=== PATIENT | male | born 1955 | race Caucasian/White ===

== ENCOUNTER 2021-01-04 16:39 | Observation (INO) | payer MEDICARE, BC, SELFPAY ==
[2021-01-04] VITALS (10 sets, daily range): BP systolic 142–181; BP diastolic 87–113; PULSE 102–116; RESP 17–28; TEMP 36.5–37.2; O2SAT 94–99; BMI 23.6; BMI 23.1
[2021-01-04 17:34] LABS: Add Manual Diff / Slide Review NO; Basophils Absolute Auto 0 /uL (0-100); Eosinophils Absolute Auto 0 /uL (0-450); Hematocrit 39.3 % (41-53); Hemoglobin 13.8 g/dL (13.5-17.5); Lymphocytes Absolute Auto 1000 /uL (1100-4500); Lymphocytes Percent Auto 8.3 % (25-40); Mean Corpuscular HGB Conc 35.2 % (30-36); Mean Corpuscular Hemoglobin 34.5 PG (26-34); Mean Corpuscular Volume 97.9 fL (80-100); Monocytes Absolute Auto 800 /uL (0-900); Monocytes Percent Auto 6.1 % (3-14); Neutrophils Absolute Auto 10600 /uL (1500-7000); Neutrophils Percent Auto 85.6 % (50-75); Platelet Count 221 X10^3/uL (150-400); Red Blood Cell Count 4.01 X10^6/uL (4.5-5.9); Red Cell Distribution Width 13.5 % (11.6-14.8); White Blood Cell Count 12.4 X10^3/uL (4.5-11.0)
[2021-01-04] MEDS: PANTOPRAZOLE 40 MG VIAL 80 MG IV (17:35)
[2021-01-04] MEDS: SODIUM CHLORIDE 0.9% 1,000 ML 125 ML IV (17:35)
[2021-01-04] MEDS: ONDANSETRON 4 MG/2 ML INJ IV (17:35)
[2021-01-04 17:42] LABS: INR 1.1 (0.9-1.3); Prothrombin Time 12.6 SECONDS (10.1-12.7)
--- NOTE | 2021-01-04 17:42 | PC.NURSE ---
coffee ground emesis.
[2021-01-04 17:44] LABS: PTT Partial Thromboplastin Tim 32 SECONDS (26.4-36.2)
[2021-01-04 17:54] LABS: Ethanol (ETOH) < 10 mg/dL
[2021-01-04 17:55] LABS: Alanine Aminotransferase 36 IU/L (<50); Albumin 4.9 g/dL (3.5-5.0); Albumin Globulin Ratio 1.4 (1.0-2.8); Alkaline Phosphatase 82 U/L (38-126); Aspartate Aminotransferase 58 IU/L (17-59); BUN Creatinine Ratio 50.5 (6-22); Bilirubin Total 2.3 mg/dL (0.2-1.3); Blood Urea Nitrogen 46 mg/dL (9-20); Calcium 10.2 mg/dL (8.4-10.2); Carbon Dioxide 27 mmol/L (22-32); Chloride 98 mmol/L (98-107); Creatine Kinase 599 U/L (55-170); Estimated Glomerular Filt Rate > 60.0 mL/min (>60); Globulin 3.4 g/dL (1.7-4.1); Glucose 184 mg/dL (80-110); HEMOLYSIS < 15 (0-50); Lipase 26 U/L (23-300); Potassium 3.4 mmol/L (3.4-5.1); Sodium 140 mmol/L (137-145); Total Protein 8.3 g/dL (6.3-8.2)
[2021-01-04 17:56] LABS: Lactate (Lactic Acid) 3.1 mmol/L (0.7-2.1)
[2021-01-04 18:06] LABS: Troponin I 0.017 ng/mL (0.01-0.034)
[2021-01-04 18:10] LABS: CKMB % Relative Index 0.6 % (1.5-5.0); Creatine Kinase MB 3.52 ng/mL (<2.37)
--- NOTE | 2021-01-04 18:13 | ED.GIBLEED ---
HPI - GI Bleed General Chief complaint: GI Bleed Stated complaint: NVD chills fever, black stools+ vomit Time Seen by Provider: 01/04/21 17:25 Source: patient Mode of arrival: Wheelchair Limitations: no limitations History of Present Illness HPI Narrative: Patient is a 65-year-old male with history of hypertension chronic back pain presenting with black tarry stools and coffee-ground emesis which started last evening. He has had about 10 episodes of coffee-ground emesis sometime just bright red but not copious amounts of bright red and his stools have all been black tarry stool. He denies any chronic NSAID use he is not on any anticoagulation. He states a small amount of scotch every night it is the only amount he can afford. He is quite shaky and says it is because he has not eaten. He denies any abdominal pain. He has not taken any Pepto-Bismol. He denies any chest pain or palpitations no shortness of breath. He is visiting from [place] he is here for work. Related Data Home Medications Medication Instructions Recorded Confirmed gabapentin 300 mg capsule 300 mg PO TID 01/04/21 01/04/21 lisinopril 20 mg tablet 20 mg PO DAILY 01/04/21 01/04/21 oxybutynin chloride 5 mg 5 mg PO BEDTIME 01/04/21 01/04/21 tablet,extended release 24 hr Allergies Allergy/AdvReac Type Severity Reaction Status Date / Time Penicillins Allergy Severe Anaphylaxis Verified 01/04/21 17:03 Review of Systems Review of Systems Narrative: GENERAL: Denies chills, fatigue, malaise, fever, sweats, travel HEENT: Denies sinus pain, ear pain, sore throat, difficulty swallowing, neck pain RESPIRATORY: Denies dyspnea, cough, wheezing, hemoptysis, sputum. CARDIOVASCULAR: Denies chest pain, palpitations, orthopnea, edema GASTROINTESTINAL: See HPI : Denies dysuria, frequency, incontinence, hematuria, urinary retention, flank pain. MUSCULOSKELETAL: Denies weakness, joint pain, or bony pain SKIN: No rash, no erythema, no pruritus NEUROLOGIC: Denies weakness, dizziness, headache, numbness, change in speech, confusion PSYCHIATRIC: No concerning psychosocial issues. 12 point review of systems is negative except for those stated above and HPI Patient History Medical History (Updated 01/04/21 @ 21:28 by TRINH Leon-POLLO) Chronic back pain Essential (primary) hypertension Urinary incontinence Urinary retention with incomplete bladder emptying Surgical History (Updated 01/04/21 @ 21:28 by FEDERICA Leon) History of hand surgery History of lumbar spinal fusion History of vasectomy Family History Mother Hypertension Stroke Macular degeneration Father Dementia Social History household members: spouse Smoking Status: Former smoker alcohol intake: current Smoking Status: Former smoker alcohol intake frequency: 0-2 drinks per day Alcohol type: hard liquor Substance Use Type: marijuana Exam Initial Vital Signs Initial Vital Signs: Vital Signs Temperature 97.7 F 01/04/21 16:57 Pulse Rate 116 H 01/04/21 16:57 Respiratory Rate 22 01/04/21 16:57 Blood Pressure 166/113 H 01/04/21 16:57 Pulse Oximetry 97 01/04/21 16:57 GENERAL: Alert pleasant 65-year-old male he does have obvious tremors HEENT: Head atraumatic,EOMI, pupils reactive, face symmetric, moist mucous membranes CARDIOVASCULAR: Regular rate and rhythm without murmurs, rubs or gallops. RESPIRATORY: Breath sounds equal bilaterally, no wheezes rales or rhonchi. ABDOMEN: Soft, nontender. Normoactive bowel sounds all 4 quadrants. No guarding or rebound. RECTAL: Hemoccult-positive, no hemorrhoids, nontender EXTREMITIES: Normal range of motion, no clubbing or edema. Neurovascularly intact NEUROLOGICAL: Alert and oriented x4.Normal gait and speech. Cranial nerves II through XII grossly intact. Shaking tremors SKIN: Warm, dry, no laceration, no petechiae, no rashes or lesions. Course Orders Ordered: Lactated Ringer's (Lactated Ringers) 1,000 mls @ 100 mls/hr IV CONT FABIANA Ceftriaxone Sodium 1,000 mg/ (Sodium Chloride) 100 mls @ 200 mls/hr IV Q24H FABIANA Last Admin: 01/04/21 22:33 Dose: 200 mls/hr Documented by: SHERLEY Ketorolac Tromethamine (Ketorolac 30 Mg/Ml Vial) 30 mg IV Q6HR PRN PRN Reason: Pain, Severe (7-10) Stop: 01/09/21 19:32 Lorazepam (Lorazepam 2 Mg/Ml Inj) 0 mg IV CIWAPRN PRN; Protocol PRN Reason: Alcohol Withdrawal Naloxone HCl (Naloxone 0.4 Mg/Ml Vial) 0.2 mg IV Q2MIN PRN PRN Reason: Opiate Reversal Ondansetron HCl (Ondansetron 4 Mg/2 Ml Inj) 4 mg IV Q8HR PRN PRN Reason: Nausea And Vomiting Pantoprazole Sodium (Pantoprazole 40 Mg Vial) 40 mg IV BID FORMERLY [facility], 1928–1983 Last Admin: 01/04/21 21:24 Dose: 40 mg Documented by: NICK Discontinued Medications Sodium Chloride (Normal Saline 0.9%) 1,000 mls @ 125 mls/hr IV CONT FOR[facility]LY [facility], [facility]–1983 Last Infusion: 01/04/21 19:45 Dose: 0 mls/hr Documented by: Admin: 01/04/21 17:35 Dose: 125 mls/hr Documented by: TOMMY Magnesium Sulfate (Magnesium Sulfate) 2 gm in 50 mls @ 25 mls/hr IV NOW ONE Stop: 01/04/21 21:48 Last Admin: 01/04/21 21:21 Dose: 25 mls/hr Documented by: NICK Cosigned by: SHERLEY Lorazepam (Lorazepam 2 Mg/Ml Inj) 0.5 mg IV NOW ONE Stop: 01/04/21 18:14 Last Admin: 01/04/21 18:29 Dose: 0.5 mg Documented by: TOMMY Lorazepam (Lorazepam 2 Mg/Ml Inj) 0.5 mg IV NOW ONE Stop: 01/04/21 20:08 Last Admin: 01/04/21 21:18 Dose: 0.5 mg Documented by: NICK Ondansetron HCl (Ondansetron 4 Mg/2 Ml Inj) 4 mg IV NOW ONE Stop: 01/04/21 17:06 Last Admin: 01/04/21 17:35 Dose: 4 mg Documented by: TOMMY Pantoprazole Sodium (Pantoprazole 40 Mg Vial) 80 mg IV NOW ONE Stop: 01/04/21 17:26 Last Admin: 01/04/21 17:35 Dose: 80 mg Documented by: TOMMY Vital Signs Vital signs: Vital Signs - 8 hr 01/04/21 16:57 01/04/21 17:34 01/04/21 17:48 Temperature 97.7 F Pulse Rate 116 H 103 H 105 H Respiratory Rate 22 Blood Pressure 166/113 H 181/103 H 153/87 H Pulse Oximetry 97 99 96 01/04/21 18:00 Temperature Pulse Rate 102 H Respiratory Rate 28 H Blood Pressure Pulse Oximetry 95 MDM - GI Bleed Lab Data Result diagrams: 01/04/21 17:24 01/04/21 17:24 Labs: Lab Results 01/04/21 01/04/21 01/04/21 Range/Units 17:24 17:24 17:24 WBC 12.4 H (4.5-11.0) X10^3/uL RBC 4.01 L (4.5-5.9) X10^6/uL Hgb 13.8 (13.5-17.5) g/dL Hct 39.3 L (41-53) % MCV 97.9 (80-100) fL MCH 34.5 H (26-34) PG MCHC 35.2 (30-36) % RDW 13.5 (11.6-14.8) % Plt Count 221 (150-400) X10^3/uL Neut % (Auto) 85.6 H (50-75) % Lymph % (Auto) 8.3 L (25-40) % [place] % (Auto) 6.1 (3-14) % Eos % (Auto) 0.0 L (2-4) % Baso % (Auto) 0.0 (0-2) % Neut # (Auto) 10469 H (0494-8222) /uL Lymph # (Auto) 1000 L (9576-4531) /uL [place] # (Auto) 800 (0-900) /uL Eos # (Auto) 0 (0-450) /uL Baso # (Auto) 0 (0-100) /uL PT 12.6 (10.1-12.7) SECONDS INR 1.1 (0.9-1.3) APTT 32 (26.4-36.2) SECONDS Sodium 140 (137-145) mmol/L Potassium 3.4 (3.4-5.1) mmol/L Chloride 98 (98-107) mmol/L Carbon Dioxide 27 (22-32) mmol/L BUN 46 H (9-20) mg/dL Creatinine 0.91 (0.66-1.25) mg/dL Estimated GFR > 60.0 (>60) mL/min BUN/Creatinine Ratio 50.5 H (6-22) Glucose 184 H (80-110) mg/dL Hemoglobin A1c (4.0-6.0) % Lactate (0.7-2.1) mmol/L Calcium 10.2 (8.4-10.2) mg/dL Magnesium (1.6-2.3) mg/dL Total Bilirubin 2.3 H (0.2-1.3) mg/dL AST 58 (17-59) IU/L ALT 36 (<50) IU/L Alkaline Phosphatase 82 (38-126) U/L Total Creatine Kinase (55-170) U/L CK-MB (CK-2) (<2.37) ng/mL CK-MB (CK-2) Rel Index (1.5-5.0) % Troponin I (0.01-0.034) ng/mL Total Protein 8.3 H (6.3-8.2) g/dL Albumin 4.9 (3.5-5.0) g/dL Globulin 3.4 (1.7-4.1) g/dL Albumin/Globulin Ratio 1.4 (1.0-2.8) Lipase (23-300) U/L Ethyl Alcohol ( - 10) mg/dL Blood Type Antibody Screen 01/04/21 01/04/21 01/04/21 Range/Units 17:24 17:24 17:24 WBC (4.5-11.0) X10^3/uL RBC (4.5-5.9) X10^6/uL Hgb (13.5-17.5) g/dL Hct (41-53) % MCV (80-100) fL MCH (26-34) PG MCHC (30-36) % RDW (11.6-14.8) % Plt Count (150-400) X10^3/uL Neut % (Auto) (50-75) % Lymph % (Auto) (25-40) % [place] % (Auto) (3-14) % Eos % (Auto) (2-4) % Baso % (Auto) (0-2) % Neut # (Auto) (2237-7575) /uL Lymph # (Auto) (7343-3094) /uL [place] # (Auto) (0-900) /uL Eos # (Auto) (0-450) /uL Baso # (Auto) (0-100) /uL PT (10.1-12.7) SECONDS INR (0.9-1.3) APTT (26.4-36.2) SECONDS Sodium (137-145) mmol/L Potassium (3.4-5.1) mmol/L Chloride (98-107) mmol/L Carbon Dioxide (22-32) mmol/L BUN (9-20) mg/dL Creatinine (0.66-1.25) mg/dL Estimated GFR (>60) mL/min BUN/Creatinine Ratio (6-22) Glucose (80-110) mg/dL Hemoglobin A1c (4.0-6.0) % Lactate 3.1 H (0.7-2.1) mmol/L Calcium (8.4-10.2) mg/dL Magnesium (1.6-2.3) mg/dL Total Bilirubin (0.2-1.3) mg/dL AST (17-59) IU/L ALT (<50) IU/L Alkaline Phosphatase (38-126) U/L Total Creatine Kinase 599 H (55-170) U/L CK-MB (CK-2) 3.52 H (<2.37) ng/mL CK-MB (CK-2) Rel Index 0.6 L (1.5-5.0) % Troponin I 0.017 (0.01-0.034) ng/mL Total Protein (6.3-8.2) g/dL Albumin (3.5-5.0) g/dL Globulin (1.7-4.1) g/dL Albumin/Globulin Ratio (1.0-2.8) Lipase 26 (23-300) U/L Ethyl Alcohol ( - 10) mg/dL Blood Type A Positive Antibody Screen Negative 01/04/21 01/04/21 01/04/21 Range/Units 17:24 17:24 17:24 WBC (4.5-11.0) X10^3/uL RBC (4.5-5.9) X10^6/uL Hgb (13.5-17.5) g/dL Hct (41-53) % MCV (80-100) fL MCH (26-34) PG MCHC (30-36) % RDW (11.6-14.8) % Plt Count (150-400) X10^3/uL Neut % (Auto) (50-75) % Lymph % (Auto) (25-40) % [place] % (Auto) (3-14) % Eos % (Auto) (2-4) % Baso % (Auto) (0-2) % Neut # (Auto) (8001-9193) /uL Lymph # (Auto) (4102-6584) /uL [place] # (Auto) (0-900) /uL Eos # (Auto) (0-450) /uL Baso # (Auto) (0-100) /uL PT (10.1-12.7) SECONDS INR (0.9-1.3) APTT (26.4-36.2) SECONDS Sodium (137-145) mmol/L Potassium (3.4-5.1) mmol/L Chloride (98-107) mmol/L Carbon Dioxide (22-32) mmol/L BUN (9-20) mg/dL Creatinine (0.66-1.25) mg/dL Estimated GFR (>60) mL/min BUN/Creatinine Ratio (6-22) Glucose (80-110) mg/dL Hemoglobin A1c 5.4 (4.0-6.0) % Lactate (0.7-2.1) mmol/L Calcium (8.4-10.2) mg/dL Magnesium 1.5 L (1.6-2.3) mg/dL Total Bilirubin (0.2-1.3) mg/dL AST (17-59) IU/L ALT (<50) IU/L Alkaline Phosphatase (38-126) U/L Total Creatine Kinase (55-170) U/L CK-MB (CK-2) (<2.37) ng/mL CK-MB (CK-2) Rel Index (1.5-5.0) % Troponin I (0.01-0.034) ng/mL Total Protein (6.3-8.2) g/dL Albumin (3.5-5.0) g/dL Globulin (1.7-4.1) g/dL Albumin/Globulin Ratio (1.0-2.8) Lipase (23-300) U/L Ethyl Alcohol < 10 ( - 10) mg/dL Blood Type Antibody Screen Point of Care Testing Stool Occult Blood Positive ECG Data Interpretation: Sinus tachycardia rate 101 OH interval 182 QRS [address] changes artifact noted no priors to compare nonpathologic Q-waves noted in lateral leads MDM Narrative Medical decision making narrative: Patient is overall hemodynamically stable that his tachycardic and shaking. Concern for withdrawal despite him stating he only drinks a small amount. He is given a dose of Ativan which does seem to help. Protonix and given he is guaiac positive. Hemoglobin and hematocrit are stable. At this time his no evidence of variceal bleeding. Dr. wick updated patient's symptoms test results agrees to consult Dr. Malin updated patient's symptoms test results and happily admits to observation Discharge Plan Departure Patient Disposition: Admitted as Observation Clinical Impression: Acute GI bleeding Admit Date/Time: 01/04/21 18:26 Admit Provider: Ernesto Malin
[2021-01-04] MEDS: LORazepam 2 MG/ML INJ 0.5 MG IV ×2 (18:29→21:18)
[2021-01-04 19:27] LABS: Reflexed Lactate in 2 Hours Y
--- NOTE | 2021-01-04 19:39 | P.HP_ITS ---
History of Present Illness History of Present Illness Date Patient Seen: 01/04/21 Time Patient Seen: 19:39 Chief complaint: NVD chills fever, black stools+ vomit Narrative: Patient is a 65-year-old male Chapo Hudson with history of hypertension, chronic back pain (lumbar fusion), urinary retention/incontinence presenting with black tarry stools and coffee-ground emesis which started last evening.? He has had about 10 episodes of coffee-ground emesis sometime just bright red but not copious amounts of bright red in his stools have all been black tarry stool.? Patient last vomited in the ED approximately 1 hour prior to admit. Patient denies any history of GI bleeding, heart attack, stroke, vascular disease, acid reflux, or alcohol abuse. He denies any chronic NSAID use, not on any anticoagulation.? He states a small amount of scotch every night it is the only amount he can afford.? Patient takes gabapentin for his back pain is not on chronic narcotics, and lisinopril 10 mg daily for his high blood pressure. Patient notes that he stopped smoking 4 years ago was a smoker for 49 years. During admit interview patient continues to be quite shaky and anxious, initial blood sugar in the ED 184. He denies any abdominal pain, nausea has resolved.? Patient denies acid reflux symptoms, dysuria, hematuria, recent illness injury or trauma. He denies any chest pain or palpitations, shortness of breath.? Patient states this this started Sunday evening following a flight from [facility] to [place]. 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 Patient's initial admit vitals temp 97.7?, BP 166/113, HR 116, RR 22, O2 saturation 97% on room air. Upon admit to the floor temp is stable, BP 153/87, HR 105, RR 22, O2 saturation 96% on room air. Patient continues to deny abdominal pain discomfort or distress. Although he continues to be extremely shaky and anxious. Patient has a mildly elevated WBC 12.4, neutrophils 10,600, patient's hemoglobin is WNL at 13.8, hematocrit slightly decreased at 39.3. Patient has a slightly elevated BUN of 46, glucose 184, total bili 2.3, total p rotein 8.3, lipase is negative but lactate was elevated at 3.1, alcohol was negative, total creatinine kinase 599, initial CK-MB 3.52 and initial troponin 0.017, 2nd troponin 0.024. Positive Hemoccult. EKG sinus tachycardia with a rate of [address] or T-wave changes. Patient admitted for GI bleed, and uncontrolled hypertension. 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 Environment Tobacco & Substance use: Smoking Status Former smoker x49 yrs, quit 2017 alcohol intake frequency 0-2 drinks per day whiskey Substance Use Type marijuana Meds Home Medications and Allergies Home Medications Medication Instructions Recorded Confirmed Type gabapentin 300 mg capsule 300 mg PO TID 01/04/21 01/04/21 History lisinopril 20 mg tablet 20 mg PO DAILY 01/04/21 01/04/21 History oxybutynin chloride 5 mg 5 mg PO BEDTIME 01/04/21 01/04/21 History tablet,extended release 24 hr Allergies Allergy/AdvReac Type Severity Reaction Status Date / Time Penicillins Allergy Severe Anaphylaxis Verified 01/04/21 17:03 Review of Systems Review of Systems Narrative: All 12 point systems reviewed with the patient and are negative except otherwise documented. Exam Vital Signs (past 8 hours): - 01/04/21 16:57 01/04/21 17:34 01/04/21 17:48 Temperature 97.7 F Pulse Rate 116 H 103 H 105 H Respiratory Rate Blood Pressure 166/113 H 181/103 H 153/87 H Pulse Oximetry 97 99 96 01/04/21 18:00 01/04/21 18:30 01/04/21 19:00 Temperature Pulse Rate 102 H 104 H 105 H Respiratory Rate 28 H 17 22 Blood Pressure Pulse Oximetry 95 94 96 Oxygen Delivery Method Room Air Narrative Exam Narrative: General: Patient is a well-developed, well-nourished male who is grossly shaking, anxious, and aggitated though in no distress at this time. HEENT: Normocephalic, atraumatic, extraocular muscles intact, oral pharynx is clear and mucous membranes are moist. Neck is supple and symmetric, trachea is midline, no adenopathy, no thyroid enlargement, nontender, no masses palpated. Negative for JVD Chest: Normal AP diameter and contour without kyphoscoliosis, no nasal flaring, retractions, or tachypneic labored Lungs: Auscultation of all lung ramirez are clear without adventitious sounds, wheezes, rhonchi, or rales. Cardio: S1 & S2 with regular rate and rhythm without murmur, rubs, or gallops, no carotid bruit, no cardiac pulsations present. Abdomen: Soft nontender, negative for organomegaly, or masses. Bowel sounds are hypoactive, present in all 4 quadrants without guarding or rebound, no CVA tenderness. Musculoskeletal: Muscle strength and tone are equal within normal limits, no deformity, crepitus, effusions, cyanosis, clubbing or edema present. Full range of motion intact radial and pedal pulses are normal. Skin: Warm dry and intact without rashes, ulcerations or petechiae. Neuro: Alert and orientated x3, strength is +5/5 in all extremities, sensation to touch intact, no gross deficits noted of cranial nerves. Psych: Patient has a well-kept appearance, appropriate affect, anxious, visible shaking, mental status attitude thought context and judgment are appropriate for age. Objective Labs Result Diagrams: 01/04/21 17:24 01/04/21 17:24 Labs: Laboratory Results - last 24 hr 01/04/21 01/04/21 01/04/21 17:24 17:24 17:24 WBC 12.4 H RBC 4.01 L Hgb 13.8 Hct 39.3 L MCV 97.9 MCH 34.5 H MCHC 35.2 RDW 13.5 Plt Count 221 Neut % (Auto) 85.6 H Lymph % (Auto) 8.3 L [place] % (Auto) 6.1 Eos % (Auto) 0.0 L Baso % (Auto) 0.0 Neut # (Auto) 67589 H Lymph # (Auto) 1000 L [place] # (Auto) 800 Eos # (Auto) 0 Baso # (Auto) 0 PT 12.6 INR 1.1 APTT 32 Sodium 140 Potassium 3.4 Chloride 98 Carbon Dioxide 27 BUN 46 H Creatinine 0.91 Estimated GFR > 60.0 BUN/Creatinine Ratio 50.5 H Glucose 184 H Lactate Calcium 10.2 Total Bilirubin 2.3 H AST 58 ALT 36 Alkaline Phosphatase 82 Total Creatine Kinase CK-MB (CK-2) CK-MB (CK-2) Rel Index Troponin I Total Protein 8.3 H Albumin 4.9 Globulin 3.4 Albumin/Globulin Ratio 1.4 Lipase Ethyl Alcohol Blood Type Antibody Screen 01/04/21 01/04/21 01/04/21 17:24 17:24 17:24 WBC RBC Hgb Hct MCV MCH MCHC RDW Plt Count Neut % (Auto) Lymph % (Auto) [place] % (Auto) Eos % (Auto) Baso % (Auto) Neut # (Auto) Lymph # (Auto) [place] # (Auto) Eos # (Auto) Baso # (Auto) PT INR APTT Sodium Potassium Chloride Carbon Dioxide BUN Creatinine Estimated GFR BUN/Creatinine Ratio Glucose Lactate 3.1 H Calcium Total Bilirubin AST ALT Alkaline Phosphatase Total Creatine Kinase 599 H CK-MB (CK-2) 3.52 H CK-MB (CK-2) Rel Index 0.6 L Troponin I 0.017 Total Protein Albumin Globulin Albumin/Globulin Ratio Lipase 26 Ethyl Alcohol Blood Type A Positive Antibody Screen Negative 01/04/21 17:24 WBC RBC Hgb Hct MCV MCH MCHC RDW Plt Count Neut % (Auto) Lymph % (Auto) [place] % (Auto) Eos % (Auto) Baso % (Auto) Neut # (Auto) Lymph # (Auto) [place] # (Auto) Eos # (Auto) Baso # (Auto) PT INR APTT Sodium Potassium Chloride Carbon Dioxide BUN Creatinine Estimated GFR BUN/Creatinine Ratio Glucose Lactate Calcium Total Bilirubin AST ALT Alkaline Phosphatase Total Creatine Kinase CK-MB (CK-2) CK-MB (CK-2) Rel Index Troponin I Total Protein Albumin Globulin Albumin/Globulin Ratio Lipase Ethyl Alcohol < 10 Blood Type Antibody Screen Assessment & Plan Assessment & Plan narrative: Patient is 65-year-old Chapo Hudson who has history of essential hypertension, chronic low back pain, and urinary incontinence who presented to the ED with hematemesis and melena for approximately 24 hours. Patient is admitted for GI bleed and uncontrolled hypertension. 1. GI bleed, Upper vs lower, or severe upper resulting in melena, with leukocytosis, acute, present on admission- stable No active Bleeding -BP 166/113, HR 116, RR 22. WBC 12.4, neutrophils 10,600, hemoglobin 13.8, hematocrit 39.3. lactate 3.1, alcohol was negative, total creatinine kinase 599, initial CK-MB 3.52 and initial troponin 0.017, Positive Hemoccult, positive hematemesis. Heart Score: 3, SOFA score:2 -EKG sinus tachycardia with a rate of [address] or T-wave changes. -patient denies history upper GI bleed, and chronic alcohol abuse although physi pablo presentation is suggestive of alcohol withdrawal. Concerns regarding alcohol withdrawal and or variceal bleeding, in combination of elevated WBC and lactate will treat with prophylactic antibiotic and patient placed on CIWA protocol. -49yr smoking HX. -Rule out upper GI &/or Lower GI Bleeding, duodenitis, esophageal varices, portal hypertensive gastropathy, angiodysplasia, gastric reflux, gastritis, peptic ulcer disease, aerophagia, [place]-V[place] tear, and or gastric cancer. -closely monitor airway, clinical status, vital signs, cardiac rhythm, urinary output, and NG to be placed if vomiting starts. -vital signs if unstable q.2 hours until DBP <100 then q.4 hours if stable, call for heart rate> 100, systolic BP< 100, activity-as tolerated with fall precautions, strict I&O Q shift, No VTE/DVT prophylaxis due to bleeding risk. Pt to use bed side commode w/assistance monitor for acute lower GI blood loss. -NPO -comorbidities that complicate or exacerbate anemia condition include coronary artery disease, older patient age, and COPD. -patient was typed and cross in ED (A+) Admit HGB 13.8 no transfusion needed at this time -Surgery Consult -Dr. Marroquin notified in ED, order placed -Meds:Protonix 40 mg IV BID, Zofran, Reglan, Rocephin 1gm, Ativan per CIWA protocol -LR 100cc/hr to start after NS bag is complete -patient verbalized anaphylaxis reaction to oral penicillin but denied allergic reaction to IV penicillin in the hospital. Based on patient's report ordered Rocephin 1 g Q 24 hours for prophylactic antibiotic for GI infection-patient airway to be monitored closely. -labs ordered CBC, CMP, lactate, trop, PT/INR in Am 2. Essential Hypertension, acute on chronic, uncontrolled, with tachycardia, acute, present on admission -initial BP 166/113, admitting 153/87, patient continues to be tachycardic less than 110 without chest pain or shortness of breath. Mildly tachypneic -continue fluid hydration -patient placed on tele -troponin 1. 0.017, troponin 2. 0.024 3rd troponin in AM, CK-MB 3.52 -will continue patient's lisinopril 20 mg q.day 3. Chronic low back pain, secondary to lumbar fusion x3, chronic, present on admission -continue patient's gabapentin 4. Urinary incontinence, chronic, present on admission -continue patient's oxybutynin -UA ordered r/o infection Code status: Full code Surrogate decision maker: Spouse Kyile Cisneros COVID PCR: Negative COVID vaccination: Pfizer June 2020 DVT/VTE prophylaxis: Meds Contraindicated, SCDs only Disposition: Expected length of stay greater than 2 midnights evaluation by surgery in the a.m. I have utilized all available immediate resources to obtain, update, or review the patient's current medications. I confirmed that the patient's advanced care plan is present, Code status is documented and/or surrogate decision maker is listed in the patient's medical record. Time Spent With Patient Critical Care time: I spent a total of [] minutes of critical care time on this patient's care today; this time is exclusive of procedural time. Scores GCS Bambi coma scale eye opening: Spontaneous [place] coma scale verbal response: Orientated Bambi coma scale motor response: Obey commands [place] coma scale total score: 15 CHADS-VASc Congestive heart failure: no Hypertension: yes Age 75 years or older: no Diabetes mellitus: no Stroke, TIA, or TE: no Vascular disease: no Age 65 to 74 years: yes Sex category (female): Male CHADS-VASc Score: 2 SOFA PaO2/FIO2: >=400 mmHg Platelets: >= 150 Bilirubin: 2.0-5.9 mg/dL Hypotension: MAP >= 70 mmHg Bambi Coma Scale: 15 Renal: < 1.2 mg/dL SOFA Score: 2
[2021-01-04 19:47] LABS: Magnesium 1.5 mg/dL (1.6-2.3)
[2021-01-04 19:54] LABS: Lactate 2HR (Lactic Acid Rflx) 1.6 mmol/L (0.7-2.1)
[2021-01-04 20:27] LABS: Hemoglobin A1C% w Est Avg Glu 5.4 % (4.0-6.0)
[2021-01-04 20:35] LABS: COVID19 - ADMIT (NP swab/PCR) Negative (Negative)
[2021-01-04 20:49] LABS: Troponin I 0.024 ng/mL (0.01-0.034)
[2021-01-04] MEDS: MAGNESIUM SULFATE 2 GM/50 ML PIGGYBACK IV (21:21)
[2021-01-04] MEDS: PANTOPRAZOLE 40 MG VIAL IV (21:24)
--- NOTE | 2021-01-04 21:35 | PC.NURSE ---
admit note: pt arrived in unit. anxious and fidgety, kept getting out of bed. pt wanted us to get his briefcase from the his car. I told the patient we might not be able to get it, pt suddenly got upset and started to pull out his Lt. FA IV, pt reports he will leave if he can't get his brief case. Security was called. Security and I went to his car and grabbed suitcase and gave it to patient. security locked the car. pt unsteady on his feet. pt felt shaky when getting up. oriented pt to the room. call light in reach. bed alarm active.
[2021-01-04] MEDS: cefTRIAXone 1,000 MG in SODIUM CHLORIDE 0.9% 100 ML 200 ML IV (22:33)
[2021-01-04 22:41] LABS: Bacteria Urine None Seen; Culture Indicated Urine Cult Not Indicated; Hyaline Casts Urine 5-10/LPF; Mucus Urine 1+ (Negative); RBC Urine 0-1/HPF (0-5/HPF); Squamous Epithelial Cell Urine 1-5 /HPF (0-5/HPF); WBC Urine 0-1/HPF (0-5/HPF)
[2021-01-05] VITALS (13 sets, daily range): BP systolic 120–164; BP diastolic 83–109; PULSE 78–100; RESP 16–18; TEMP 36.2–37.2; O2SAT 95–99
--- NOTE | 2021-01-05 02:30 | PC.NURSE ---
Patient is alert and oriented. Breath sounds CTA with RA sat of 95%. HRR but tachy at 100 bpm; telemetry reading was SR-ST with PAC's. Denied nausea. BT present and abdomen is soft but reported tenderness on palpation. Denied dysuria, frequency or urgency with urination. Is able to turn self in bed. Gait not assessed but evening RN reports SBA to BSC for safety. Scattered bruises and patient reports frequent falls. Refuses SCD's so reminded to ankle wave. Denied pain. Fall risk score is high and bed alarm is activated. Is currently NPO due to GI bleed and possibility of diagnostic procedure later today. HOB is elevated 15 degrees
[2021-01-05] MEDS: LACTATED RINGERS 1,000 ML 100 ML IV ×2 (02:48→11:23)
[2021-01-05] MEDS: METOPROLOL TARTRATE 5 MG/5 ML INJ IV (05:41)
[2021-01-05 06:22] LABS: INR 1.2 (0.9-1.3); Prothrombin Time 12.8 SECONDS (10.1-12.7)
[2021-01-05 06:25] LABS: Add Manual Diff / Slide Review NO; Basophils Absolute Auto 0 /uL (0-100); Basophils Percent Auto 0.3 % (0-2); Eosinophils Absolute Auto 0 /uL (0-450); Eosinophils Percent Auto 0.2 % (2-4); Hematocrit 35.3 % (41-53); Hemoglobin 12.4 g/dL (13.5-17.5); Lymphocytes Absolute Auto 1400 /uL (1100-4500); Lymphocytes Percent Auto 15.8 % (25-40); Mean Corpuscular HGB Conc 35.1 % (30-36); Mean Corpuscular Hemoglobin 34.4 PG (26-34); Monocytes Absolute Auto 800 /uL (0-900); Monocytes Percent Auto 8.7 % (3-14); Neutrophils Absolute Auto 6500 /uL (1500-7000); Platelet Count 195 X10^3/uL (150-400); Red Cell Distribution Width 13.6 % (11.6-14.8); White Blood Cell Count 8.7 X10^3/uL (4.5-11.0)
[2021-01-05 06:30] LABS: Alanine Aminotransferase 26 IU/L (<50); Albumin 4.1 g/dL (3.5-5.0); Albumin Globulin Ratio 1.4 (1.0-2.8); Alkaline Phosphatase 61 U/L (38-126); Aspartate Aminotransferase 55 IU/L (17-59); BUN Creatinine Ratio 51.2 (6-22); Bilirubin Total 1.6 mg/dL (0.2-1.3); Blood Urea Nitrogen 44 mg/dL (9-20); Carbon Dioxide 30 mmol/L (22-32); Chloride 105 mmol/L (98-107); Estimated Glomerular Filt Rate > 60.0 mL/min (>60); Globulin 2.9 g/dL (1.7-4.1); Glucose 126 mg/dL (80-110); HEMOLYSIS < 15 (0-50); Potassium 3.4 mmol/L (3.4-5.1); Sodium 140 mmol/L (137-145)
[2021-01-05 06:38] LABS: NT-proBNP (BNP-Adult 18+) 1310 pg/mL (<125)
[2021-01-05 06:41] LABS: Troponin I 0.019 ng/mL (0.01-0.034)
[2021-01-05] MEDS: PANTOPRAZOLE 40 MG VIAL IV ×2 (09:22→21:02)
--- NOTE | 2021-01-05 12:40 | PC.NURSE ---
Assess- Patient is alert and oriented x3. CIWA is o, so s&s of withdrawal from alcohol. He is a sba to get up. Tele in place. Patient voids per urinal. He denies pain or discomfort and no emesis or stool thus far. IVF infusing. Patient is tolerating clear liquid tray and blood sugars are d/cd.
--- NOTE | 2021-01-05 13:29 | PM.PN.1 ---
Subjective Subjective Date Patient Seen: 01/05/21 Time Patient Seen: 08:00 Interval history: Today he is feeling improved. He still had retching when he came in to the hospital but this is improving. This morning his hemoglobin was down to 12.4. Today he has not noted further bleeding. Exam Vital Signs (past 8 hours): - 01/05/21 05:41 01/05/21 07:25 01/05/21 09:00 Temperature 97.9 F Pulse Rate 87 78 85 Pulse Rate [Orthostatic Lying] Pulse Rate [Orthostatic Sitting] Pulse Rate [Orthostatic Standing] Respiratory Rate 16 Blood Pressure 144/98 H 146/104 H 140/109 H Blood Pressure [Orthostatic Lying] Blood Pressure [Orthostatic Sitting] Blood Pressure [Orthostatic Standing] Pulse Oximetry 96 01/05/21 09:05 01/05/21 12:50 Temperature 98.0 F Pulse Rate 83 Pulse Rate [Orthostatic Lying] 85 Pulse Rate [Orthostatic Sitting] 85 Pulse Rate [Orthostatic Standing] 96 H Respiratory Rate 16 Blood Pressure 152/94 H Blood Pressure [Orthostatic Lying] 140/109 H Blood Pressure [Orthostatic Sitting] 164/95 H Blood Pressure [Orthostatic Standing] 163/108 H Pulse Oximetry 98 Oxygen Delivery Method Room Air Oxygen Flow Rate 0 Narrative Exam Narrative: General:? no acute distress Lungs:?clear bilaterally Cardio:? regular rate and rhythm without murmur Abdomen:? Soft nontender, negative for organomegaly, or masses.? Skin:? Warm dry and intact without rashes, ulcerations or petechiae.? Objective Labs Result Diagrams: 01/05/21 06:00 01/05/21 06:00 Labs: Laboratory Results - last 24 hr 01/04/21 01/04/21 01/04/21 17:24 17:24 17:24 WBC 12.4 H RBC 4.01 L Hgb 13.8 Hct 39.3 L MCV 97.9 MCH 34.5 H MCHC 35.2 RDW 13.5 Plt Count 221 Neut % (Auto) 85.6 H Lymph % (Auto) 8.3 L [place] % (Auto) 6.1 Eos % (Auto) 0.0 L Baso % (Auto) 0.0 Neut # (Auto) 45003 H Lymph # (Auto) 1000 L [place] # (Auto) 800 Eos # (Auto) 0 Baso # (Auto) 0 PT 12.6 INR 1.1 APTT 32 Sodium 140 Potassium 3.4 Chloride 98 Carbon Dioxide 27 BUN 46 H Creatinine 0.91 Estimated GFR > 60.0 BUN/Creatinine Ratio 50.5 H Glucose 184 H Hemoglobin A1c Lactate Calcium 10.2 Magnesium Total Bilirubin 2.3 H AST 58 ALT 36 Alkaline Phosphatase 82 Total Creatine Kinase CK-MB (CK-2) CK-MB (CK-2) Rel Index Troponin I NT-Pro-B Natriuret Pep Total Protein 8.3 H Albumin 4.9 Globulin 3.4 Albumin/Globulin Ratio 1.4 Lipase Urine RBC Urine WBC Ur Squamous Epith Cells Urine Bacteria Hyaline Casts Urine Mucus Ur Culture Indicated? Ethyl Alcohol SARS-CoV-2 (PCR) Blood Type Antibody Screen 01/04/21 01/04/21 01/04/21 17:24 17:24 17:24 WBC RBC Hgb Hct MCV MCH MCHC RDW Plt Count Neut % (Auto) Lymph % (Auto) [place] % (Auto) Eos % (Auto) Baso % (Auto) Neut # (Auto) Lymph # (Auto) [place] # (Auto) Eos # (Auto) Baso # (Auto) PT INR APTT Sodium Potassium Chloride Carbon Dioxide BUN Creatinine Estimated GFR BUN/Creatinine Ratio Glucose Hemoglobin A1c Lactate 3.1 H Calcium Magnesium Total Bilirubin AST ALT Alkaline Phosphatase Total Creatine Kinase 599 H CK-MB (CK-2) 3.52 H CK-MB (CK-2) Rel Index 0.6 L Troponin I 0.017 NT-Pro-B Natriuret Pep Total Protein Albumin Globulin Albumin/Globulin Ratio Lipase 26 Urine RBC Urine WBC Ur Squamous Epith Cells Urine Bacteria Hyaline Casts Urine Mucus Ur Culture Indicated? Ethyl Alcohol SARS-CoV-2 (PCR) Blood Type A Positive Antibody Screen Negative 01/04/21 01/04/21 01/04/21 17:24 17:24 17:24 WBC RBC Hgb Hct MCV MCH MCHC RDW Plt Count Neut % (Auto) Lymph % (Auto) [place] % (Auto) Eos % (Auto) Baso % (Auto) Neut # (Auto) Lymph # (Auto) [place] # (Auto) Eos # (Auto) Baso # (Auto) PT INR APTT Sodium Potassium Chloride Carbon Dioxide BUN Creatinine Estimated GFR BUN/Creatinine Ratio Glucose Hemoglobin A1c 5.4 Lactate Calcium Magnesium 1.5 L Total Bilirubin AST ALT Alkaline Phosphatase Total Creatine Kinase CK-MB (CK-2) CK-MB (CK-2) Rel Index Troponin I NT-Pro-B Natriuret Pep Total Protein Albumin Globulin Albumin/Globulin Ratio Lipase Urine RBC Urine WBC Ur Squamous Epith Cells Urine Bacteria Hyaline Casts Urine Mucus Ur Culture Indicated? Ethyl Alcohol < 10 SARS-CoV-2 (PCR) Blood Type Antibody Screen 01/04/21 01/04/21 01/04/21 19:34 19:34 19:36 WBC RBC Hgb Hct MCV MCH MCHC RDW Plt Count Neut % (Auto) Lymph % (Auto) [place] % (Auto) Eos % (Auto) Baso % (Auto) Neut # (Auto) Lymph # (Auto) [place] # (Auto) Eos # (Auto) Baso # (Auto) PT INR APTT Sodium Potassium Chloride Carbon Dioxide BUN Creatinine Estimated GFR BUN/Creatinine Ratio Glucose Hemoglobin A1c Lactate 1.6 Calcium Magnesium Total Bilirubin AST ALT Alkaline Phosphatase Total Creatine Kinase CK-MB (CK-2) CK-MB (CK-2) Rel Index Troponin I 0.024 NT-Pro-B Natriuret Pep Total Protein Albumin Globulin Albumin/Globulin Ratio Lipase Urine RBC Urine WBC Ur Squamous Epith Cells Urine Bacteria Hyaline Casts Urine Mucus Ur Culture Indicated? Ethyl Alcohol SARS-CoV-2 (PCR) Negative Blood Type Antibody Screen 01/04/21 01/05/21 01/05/21 22:25 06:00 06:00 WBC RBC Hgb Hct MCV MCH MCHC RDW Plt Count Neut % (Auto) Lymph % (Auto) [place] % (Auto) Eos % (Auto) Baso % (Auto) Neut # (Auto) Lymph # (Auto) [place] # (Auto) Eos # (Auto) Baso # (Auto) PT INR APTT Sodium Potassium Chloride Carbon Dioxide BUN Creatinine Estimated GFR BUN/Creatinine Ratio Glucose Hemoglobin A1c Lactate 1.0 Calcium Magnesium Total Bilirubin AST ALT Alkaline Phosphatase Total Creatine Kinase CK-MB (CK-2) CK-MB (CK-2) Rel Index Troponin I 0.019 NT-Pro-B Natriuret Pep Total Protein Albumin Globulin Albumin/Globulin Ratio Lipase Urine RBC 0-1/hpf Urine WBC 0-1/hpf Ur Squamous Epith Cells 1-5 /hpf Urine Bacteria None seen Hyaline Casts 5-10/lpf Urine Mucus 1+ H Ur Culture Indicated? Cult not indicated Ethyl Alcohol SARS-CoV-2 (PCR) Blood Type Antibody Screen 01/05/21 01/05/21 01/05/21 06:00 06:00 06:00 WBC 8.7 RBC 3.60 L Hgb 12.4 L Hct 35.3 L MCV 98.0 MCH 34.4 H MCHC 35.1 RDW 13.6 Plt Count 195 Neut % (Auto) 75.0 Lymph % (Auto) 15.8 L [place] % (Auto) 8.7 Eos % (Auto) 0.2 L Baso % (Auto) 0.3 Neut # (Auto) 6500 Lymph # (Auto) 1400 [place] # (Auto) 800 Eos # (Auto) 0 Baso # (Auto) 0 PT 12.8 H INR 1.2 APTT Sodium 140 Potassium 3.4 Chloride 105 Carbon Dioxide 30 BUN 44 H Creatinine 0.86 Estimated GFR > 60.0 BUN/Creatinine Ratio 51.2 H Glucose 126 H Hemoglobin A1c Lactate Calcium 9.0 Magnesium Total Bilirubin 1.6 H AST 55 ALT 26 Alkaline Phosphatase 61 Total Creatine Kinase CK-MB (CK-2) CK-MB (CK-2) Rel Index Troponin I NT-Pro-B Natriuret Pep 1310 H Total Protein 7.0 Albumin 4.1 Globulin 2.9 Albumin/Globulin Ratio 1.4 Lipase Urine RBC Urine WBC Ur Squamous Epith Cells Urine Bacteria Hyaline Casts Urine Mucus Ur Culture Indicated? Ethyl Alcohol SARS-CoV-2 (PCR) Blood Type Antibody Screen [facility] Medical History (Updated 01/04/21 @ 21:28 by TRINH Leon-POLLO) Chronic back pain Essential (primary) hypertension Urinary incontinence Urinary retention with incomplete bladder emptying Surgical History (Updated 01/04/21 @ 21:28 by TRINH Leon-POLLO) History of hand surgery History of lumbar spinal fusion History of vasectomy Family History Mother Hypertension Stroke Macular degeneration Father Dementia Social History household members: spouse Smoking Status: Former smoker alcohol intake: current Comment: 65M with PMH hypertension, chronic low back pain, and urinary incontinence who presented to the ED with hematemesis and melena. 1. GI bleed, likely upper -initially tachycardic in the 110s, hemoglobin 13.8, now 12.4, lactate 3.1 now 1.0 -has one glass etoh a night, ordered for CIWA -no history of GI bleed previously, no history of EGD, last colo was a few years ago per patient with no abnormalities -sounds as if patient started vomiting and then had bleeding after, possible burke frye tear, or gastritis -clear liquids -patient was typed and cross in ED -Meds:Protonix 40 mg IV BID, Zofran, Reglan, Rocephin 1gm, Ativan per CIWA protocol? -trend hemoglobin, if remains stable can likely dc, if worsens would consider EGD while hospitalized 2. Essential Hypertension, acute on chronic, uncontrolled, with tachycardia, acute, present on admission -initial BP 166/113, admitting 153/87, patient continues to be tachycardic less than 110 without chest pain or shortness of breath.? Mildly tachypneic -continue fluid hydration -patient placed on tele -troponin 1.? 0.017, troponin 2.? 0.024 3rd troponin 0.019 3. Chronic low back pain, secondary to lumbar fusion x3, chronic, present on admission -continue patient's gabapentin 4. Urinary incontinence, chronic, present on admission -continue patient's oxybutynin -UA ordered r/o infection and is negative Code status: Full code Surrogate decision maker: Spouse Kylie Cisneros COVID PCR:? Negative COVID vaccination:? Pfizer June 2020 DVT/VTE prophylaxis:? Meds Contraindicated, SCDs only Disposition: Expected length of stay greater than 2 midnights evaluation by surgery in the a.m. Assessment & Plan Time Spent With Patient Critical Care time: I spent a total of [] minutes of critical care time on this patient's care today; this time is exclusive of procedural time.
[2021-01-05 14:27] LABS: Hematocrit 36.2 % (41-53); Hemoglobin 12.3 g/dL (13.5-17.5); Mean Corpuscular Hemoglobin 33.9 PG (26-34); Mean Corpuscular Volume 99.8 fL (80-100); Platelet Count 198 X10^3/uL (150-400); Red Blood Cell Count 3.63 X10^6/uL (4.5-5.9); Red Cell Distribution Width 13.8 % (11.6-14.8); White Blood Cell Count 8.3 X10^3/uL (4.5-11.0)
--- NOTE | 2021-01-05 15:27 | CM.DANOTE ---
DCP/Assessment: Reviewed chart. Patient is a 65yr old male admitted with GI bleed. Patient resides in [place] and plans to return there when medically stable. Patient denies any d/c planning needs. Patient has airline tickets to return to [place] on 01-07. P: Home KJS Discharge Planning/Care Management Discharge Assessment Start: 01/05/21 15:22 Freq: Status: Active Protocol: Document 01/05/21 15:22 KJS (Rec: 01/05/21 15:27 KJS [id number]) Discharge Planning Assessment Assigned [facility]ative Rehab Aide GEORGINA Benitez Contact Information Kylie Hudson (spouse) ph# [phone] Advance Directives? No History Provided By Patient,Medical Record Prior Living Arrangements House Household Members spouse Type of transporation used prior to Drives own vehicle admit Independent with ADL's Yes Is patient alert and oriented? Yes Caregiver for Another No Barriers to Discharge No Discharge Plan Home Whiteboard Updated in Patient Room with Yes name and ext. # of [facility] Aide Review Status In Process Discharge Planning/Care Management Discharge Assessment Start: 01/05/21 15:22 Freq: Status: Active Protocol: Document 01/05/21 15:22 KJS (Rec: 01/05/21 15:27 KJS [id number]) Discharge Planning Assessment Assigned [facility] Re[facility] Aide GEORGINA Benitez Contact Information Kylie Hudson (spouse) # [phone] Advance Directives? No History Provided By Patient,Medical Record Prior Living Arrangements House Household Members spouse Type of transporation used prior to Drives own vehicle admit Independent with ADL's Yes Is patient alert and oriented? Yes Caregiver for Another No Barriers to Discharge No Discharge Plan Home Whiteboard Updated in Patient Room with Yes name and ext. # of [facility]orative Rehab Aide Review Status In Process
[2021-01-05] MEDS: cefTRIAXone 1,000 MG in SODIUM CHLORIDE 0.9% 100 ML 200 ML IV (21:01)
[2021-01-05] MEDS: SODIUM CHLORIDE 0.9% FLUSH 10 ML IV (21:02)
[2021-01-06 00:30] VITALS: BP 134/91; BP 151/98; BP 158/101; PULSE 73; PULSE 79; PULSE 85; RESP 16; TEMP 36.9; O2SAT 96
[2021-01-06 01:27] VITALS: BP 133/91; PULSE 74
[2021-01-06] MEDS: lisinopriL 20 MG TABLET PO ×2 (01:27→08:12)
--- NOTE | 2021-01-06 02:22 | PC.NURSE ---
Patient is alert and oriented. Again, tonight, states he was admitted for diverticulitis. When asked if he was having coffee ground emesis/black tarry stools he states yes, those are symptoms of diverticulitis. Breath sounds CTA with RA sat of 96%. HRR w/telemetry reading of SR. BP elevated at 158/101 so Tay REYES, informed as noted patient's normal home med Lisinopril was not ordered on admit. Order received to restart medication and was medicated with a now dose. Orthostatic BP noted for drop in systolic from 151 to 134 when going from sitting to standing position. Denied nausea. Has not had a BM since 01/02 but is passing flatus. Denied dysuria, frequency or urgency with urination. Is able to turn himself in bed. Up to BSC with SBA. Denied pain. Again refuses SCD's so reminded to ankle wave. Fall risk score is high and bed alarm is activated.
[2021-01-06 05:30] VITALS: BP 133/75; PULSE 65; RESP 16; TEMP 36.6; O2SAT 97
[2021-01-06 05:44] LABS: Add Manual Diff / Slide Review NO; Basophils Absolute Auto 0 /uL (0-100); Basophils Percent Auto 0.6 % (0-2); Eosinophils Absolute Auto 200 /uL (0-450); Eosinophils Percent Auto 2.7 % (2-4); Hematocrit 31.8 % (41-53); Hemoglobin 10.9 g/dL (13.5-17.5); Lymphocytes Absolute Auto 1500 /uL (1100-4500); Lymphocytes Percent Auto 23.2 % (25-40); Mean Corpuscular HGB Conc 34.2 % (30-36); Mean Corpuscular Hemoglobin 34.1 PG (26-34); Mean Corpuscular Volume 99.8 fL (80-100); Monocytes Absolute Auto 600 /uL (0-900); Monocytes Percent Auto 9.4 % (3-14); Neutrophils Absolute Auto 4100 /uL (1500-7000); Neutrophils Percent Auto 64.1 % (50-75); Platelet Count 159 X10^3/uL (150-400); Red Blood Cell Count 3.19 X10^6/uL (4.5-5.9); Red Cell Distribution Width 13.4 % (11.6-14.8); White Blood Cell Count 6.4 X10^3/uL (4.5-11.0)
[2021-01-06 05:54] LABS: Alanine Aminotransferase 27 IU/L (<50); Albumin 3.7 g/dL (3.5-5.0); Albumin Globulin Ratio 1.4 (1.0-2.8); Alkaline Phosphatase 57 U/L (38-126); Aspartate Aminotransferase 55 IU/L (17-59); BUN Creatinine Ratio 31.9 (6-22); Bilirubin Total 1.4 mg/dL (0.2-1.3); Blood Urea Nitrogen 23 mg/dL (9-20); Calcium 8.6 mg/dL (8.4-10.2); Carbon Dioxide 29 mmol/L (22-32); Chloride 105 mmol/L (98-107); Estimated Glomerular Filt Rate > 60.0 mL/min (>60); Globulin 2.7 g/dL (1.7-4.1); Glucose 120 mg/dL (80-110); HEMOLYSIS < 15 (0-50); Potassium 3.4 mmol/L (3.4-5.1); Sodium 139 mmol/L (137-145); Total Protein 6.4 g/dL (6.3-8.2)
--- NOTE | 2021-01-06 07:47 | PC.NURSE ---
Assess- Patient is awake, he denies pain and bowel tones are present x4 quadrants. He is up with min assist and has been using the urinal at bedside. Blood pressure more stable and he will be getting is lisinopril today. He is hoping to go home.
[2021-01-06 08:08] VITALS: BP 127/83; PULSE 67; RESP 16; TEMP 36.6; O2SAT 100
[2021-01-06] MEDS: PANTOPRAZOLE 40 MG VIAL IV (08:13)
[2021-01-06] MEDS: SODIUM CHLORIDE 0.9% FLUSH 10 ML IV (08:13)
--- NOTE | 2021-01-06 09:18 | P.DS_ITS ---
History of Present Illness History of Present Illness Chief complaint: NVD chills fever, black stools+ vomit Narrative: Per Rozina Cross: Patient is a 65-year-old male Chapo Hudson with history of hypertension, chronic back pain (lumbar fusion), urinary retention/incontinence presenting with black tarry stools and coffee-ground emesis which started last evening.? He has had about 10 episodes of coffee-ground emesis sometime just bright red but not copious amounts of bright red in his stools have all been black tarry stool.? Patient last vomited in the ED approximately 1 hour prior to admit.? Patient denies any history of GI bleeding, heart attack, stroke, vascular disease, acid reflux, or alcohol abuse.? He denies any chronic NSAID use, not on any anticoagulation.? He states a small amount of scotch every night it is the only amount he can afford.? Patient takes gabapentin for his back pain is not on chronic narcotics, and lisinopril 10 mg daily for his high blood pressure.? Patient notes that he stopped smoking 4 years ago was a smoker for 49 years.? During admit interview patient continues to be quite shaky and anxious, initial blood sugar in the ED 184.? He denies any abdominal pain, nausea has resolved.? Patient denies acid reflux symptoms, dysuria, hematuria, recent illness injury o r trauma.? He denies any chest pain or palpitations, shortness of breath.? Patient states this this started Sunday evening following a flight from [facility] to [place].? 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 Patient's initial admit vitals temp 97.7?, BP 166/113, HR 116, RR 22, O2 saturation 97% on room air.? Upon admit to the floor temp is stable, BP 153/87, HR 105, RR 22, O2 saturation 96% on room air.? Patient continues to deny abdominal pain discomfort or distress.? Although he continues to be extremely shaky and anxious.? Patient has a mildly elevated WBC 12.4, neutrophils 10,600, patient's hemoglobin is WNL at 13.8, hematocrit slightly decreased at 39.3.? Patient has a slightly elevated BUN of 46, glucose 184, total bili 2.3, total protein 8.3, lipase is negative but lactate was elevated at 3.1, alcohol was ne gative, total creatinine kinase 599, initial CK-MB 3.52 and initial troponin 0.017, 2nd troponin 0.024.? Positive Hemoccult. ? EKG sinus tachycardia with a rate of [address] or T-wave changes.? Patient admitted for GI bleed, and uncontrolled hypertension. Discharge Providers Provider Date of admission: 01/04/21 18:26 Discharge Date: 01/06/21 Consults: 01/04/21 19:27 Consult to General Surgery Routine Comment: Consulting Provider: Brandt Marroquin Reason for consultation: GI Bleed Has provider been notified: Yes Discharge provider: Mustapha Telles MD Summary Hospital Course Discharge Diagnosis: 1. Acute GI bleed 2. HTN 3. Chronic low back pain 4. Urinary incontinence Hospital Course: Mr. Hudson came in to the hospital with an episode of hematemesis and melena. He remained hemodynamically stable. He noted he had vomiting first, felt ill, and then developed some blood. He was placed on IV PPI BID. His hemoglobin never dropped to the point where he required transfusion and on discharge was 10.9. He had no further bleeding in the hospital. He felt back to normal. It was likely he had bleed from gastritis, peptic ulcer, or burke frye tear. Discussion was had with him about medical management or to do an inpatient EGD and possible colonoscopy. After discussion he preferred to be discharged and follow up as an oupatient if he had further bleeding. He was given a prescription for a pantoprazole. Exam Vital Signs (past 8 hours): Oxygen Delivery Method Room Air Oxygen Flow Rate 0 Narrative Exam Narrative: General:? no acute distress Lungs:?clear bilaterally Cardio:? regular rate and rhythm without murmur Abdomen:? Soft nontender, negative for organomegaly, or masses.? Skin:? Warm dry and intact without rashes, ulcerations or petechiae.? Objective Labs Result Diagrams: 01/06/21 05:09 01/06/21 05:09 [facility] Medical History (Updated 01/04/21 @ 21:28 by FEDERICA Leon) Chronic back pain Essential (primary) hypertension Urinary incontinence Urinary retention with incomplete bladder emptying Surgical History (Updated 01/04/21 @ 21:28 by Rozina Cross, EDUCATION SPECIALIST-BC) History of hand surgery History of lumbar spinal fusion History of vasectomy Family History Mother Hypertension Stroke Macular degeneration Father Dementia Social History household members: spouse Smoking Status: Former smoker alcohol intake: current Discharge Plan Discharge Plan Patient Disposition: Home Provider Discharge Comment: Mr. Hudson came to the hospital with nausea and vomiting. He did have notice some dark stool and dark vomit, with a mild anemia. But this improved in the hospital. He was ordered for protonix to decreased the amount of acid in his stomach to help protect against any bleeding. EGD was discussed with him, but he agreed to try the medication first and see how he di d, and if any further bleeding occurs would consider bleeding. His bleeding is most likely caused by some irritation in his stomach or esophagus which the protonix is prescribed to help reduce inflammation. Discharge orders & Medications Prescriptions: New pantoprazole [Protonix] 40 mg tablet,delayed release (DR/EC) 40 mg PO BID Qty: 60 RF: 0 Continued lisinopril 20 mg tablet 20 mg PO DAILY RF: 0 oxybutynin chloride 5 mg tablet extended release 24hr 5 mg PO BEDTIME RF: 0 gabapentin 300 mg capsule 300 mg PO TID RF: 0 Diet/Activity/Treatments Diet: Regular Visit Report/Discharge Packet Instructions: Gastrointestinal Bleeding Discharge Data Attending Provider: Ernesto Malin MIPS - DC The patient has current or prior documentation of left ventricular ejection fraction (LVEF) less than 40%, or moderate or severely depressed left ventricular systolic function.: No
[2021-01-06 09:30] VITALS: BP 127/83; BP 130/90; BP 135/81; PULSE 65; PULSE 76; PULSE 89
== END 2021-01-06 10:41 | disposition home or self-care (01) ==
LOC: ED 17:59 → AC 18:26
PROVIDERS: Emergency Medicine; Internal Medicine; Nurse Practitioner Family; Admitting Provider Internal Medicine; Emergency Provider Emergency Medicine; Referring Provider Emergency Medicine; Visit Provider Internal Medicine
DX: K92.0 Hematemesis (principal); K92.1 Melena; I10 Essential (primary) hypertension; R00.0 Tachycardia, unspecified; G89.29 Other chronic pain; Z98.1 Arthrodesis status; R32 Unspecified urinary incontinence; Z87.891 Personal history of nicotine dependence; Z20.822 Contact with and (suspected) exposure to COVID-19
CPT/HCPCS: 36415; 80053; 80320; 81015; 82272; 82550; 82553; 82962; 83036; 83605; 83690; 83735; 83880; 84484; 85025; 85027; 85610; 85730; 86850; 86900; 86901; 87635; 93005; 93010; 94760; 96361; 96365; 96366; 96375; 96376; 99284; C9803; G0378; C9113; J0696; J2060; J2405; J3475